=== PATIENT | male | born 1955 | race Caucasian/White ===

== ENCOUNTER 2017-05-27 14:31 | Observation (INO) | payer MEDICAID ==
[~2017-05-27] VITALS: Ht 175.3 cm; Wt 71.0 kg
[2017-05-27 15:09] LABS: BASOPHILS # (AUTO) 0.04 x10^3/uL (0-0.1); BASOPHILS % (AUTO) 1 % (0-1); EOSINOPHILS # (AUTO) 0.08 x10^3/uL (0-0.4); EOSINOPHILS % (AUTO) 1 % (1-7); LYMPHOCYTES # (AUTO) 1.26 x10^3/uL (1-3.4); LYMPHOCYTES % (AUTO) 21 % (22-44); MD NO; MEAN CORPUSCULAR HGB CONC 33.4 g/dL (33.2-36.2); MEAN CORPUSCULAR VOLUME 90.1 fL (81-97); MEAN PLATELET VOLUME 8.6 fL (7.4-10.4); MONOCYTES # (AUTO) 0.36 x10^3/uL (0.2-0.8); MONOCYTES % (AUTO) 6 % (2-9); NEUTROPHILS # (AUTO) 4.16 x10^3/uL (1.8-6.8); NEUTROPHILS % (AUTO) 71 % (42-75); PLATELET COUNT 166 x10^3/uL (130-400); RED BLOOD COUNT 5.24 x10^6/uL (4.38-5.82); RED CELL DISTRIBUTION WIDTH 12.4 % (9.4-14.8)
[2017-05-27 15:17] LABS: ALANINE AMINOTRANSFERASE 32 U/L (12-78); ALBUMIN 3.7 g/dL (3.4-5.0); ANION GAP 7 mmol/L (5-15); CALCIUM 8.2 mg/dL (8.5-10.1); CHLORIDE 105 mmol/L (98-107); CREATININE 0.76 mg/dL (0.7-1.3)
[2017-05-27 15:20] LABS: ALKALINE PHOSPHATASE 59 U/L (45-117); BILIRUBIN,TOTAL 0.6 mg/dL (0.2-1.0); TOTAL PROTEIN 6.9 g/dL (6.4-8.2)
[2017-05-27 15:21] LABS: ACETAMINOPHEN < 2 mcg/mL (10-30); SALICYLATE LEVEL < 1.7 mg/dL (2.8-20.0)
[2017-05-27 15:53] LABS: MICROSCOPIC NOT IND
[2017-05-27 15:57] LABS: CULTURE INDICATED? NO
[2017-05-27 16:13] LABS: AMPHETAMINE SCREEN, URINE Negative (Negative); BARBITURATE SCREEN, URINE Negative (Negative); BENZODIAZEPINE SCREEN, URINE Negative (Negative); CANNABINOID SCREEN, URINE Positive (Negative); COCAINE SCREEN, URINE Negative (Negative); METHADONE SCREEN, URINE Negative (Negative); OPIATE SCREEN, URINE Negative (Negative)
[2017-05-27] MEDS ORDERED: ONDANSETRON ODT 4 MG PO PRN (17:30)
[2017-05-27] MEDS ORDERED: HYDROcodone/APAP 5/325 TABLET PO PRN (17:30)
[2017-05-27 17:45] LABS: INTERNATIONAL NORMALIZED RATIO 1.08 (0.93-1.1); PROTHROMBIN TIME 11.1 Seconds (9.6-11.5)
[2017-05-27 18:17] LABS: FREE T4 (FREE THYROXINE) 1.21 ng/dL (0.76-1.46); THYROID STIMULATING HORMONE 0.393 mIU/L (0.358-3.740)
[2017-05-27 19:35] VITALS: BP 113/76
[2017-05-27] MEDS: LORazepam 1MG TABLET PO PRN (20:10)
[2017-05-27] MEDS: CYCLOBENZAPRINE 10 MG TABLET PO PRN (20:10)
[2017-05-28 05:39] LABS: BASOPHILS # (AUTO) 0.03 x10^3/uL (0-0.1); BASOPHILS % (AUTO) 1 % (0-1); EOSINOPHILS # (AUTO) 0.25 x10^3/uL (0-0.4); EOSINOPHILS % (AUTO) 5 % (1-7); LYMPHOCYTES # (AUTO) 1.63 x10^3/uL (1-3.4); LYMPHOCYTES % (AUTO) 33 % (22-44); MD NO; MEAN CORPUSCULAR HEMOGLOBIN 30.6 pg (27.5-34.5); MEAN CORPUSCULAR HGB CONC 33.7 g/dL (33.2-36.2); MEAN CORPUSCULAR VOLUME 90.7 fL (81-97); MEAN PLATELET VOLUME 9.1 fL (7.4-10.4); MONOCYTES # (AUTO) 0.44 x10^3/uL (0.2-0.8); MONOCYTES % (AUTO) 9 % (2-9); NEUTROPHILS # (AUTO) 2.64 x10^3/uL (1.8-6.8); NEUTROPHILS % (AUTO) 53 % (42-75); PLATELET COUNT 164 x10^3/uL (130-400); RED BLOOD COUNT 5.27 x10^6/uL (4.38-5.82); RED CELL DISTRIBUTION WIDTH 13.2 % (9.4-14.8)
[2017-05-28 05:49] LABS: CHLORIDE 109 mmol/L (98-107)
[2017-05-28 06:02] LABS: ALANINE AMINOTRANSFERASE 29 U/L (12-78); ALBUMIN 3.5 g/dL (3.4-5.0); ALKALINE PHOSPHATASE 53 U/L (45-117); ANION GAP 7 mmol/L (5-15); BILIRUBIN,TOTAL 0.6 mg/dL (0.2-1.0); CALCIUM 8.8 mg/dL (8.5-10.1); TOTAL PROTEIN 6.5 g/dL (6.4-8.2)
[2017-05-28] MEDS: CYCLOBENZAPRINE 10 MG TABLET PO PRN ×2 (07:49→20:40)
[2017-05-28 07:54] VITALS: BP 120/77
[2017-05-28 19:34] VITALS: BP 119/82
[2017-05-28] MEDS: LORazepam 1MG TABLET PO PRN (20:39)
[2017-05-28] MEDS: LITHIUM CARBONATE 300 MG CAPSULE PO SCH (20:39)
[2017-05-29 07:23] VITALS: BP 118/78
[2017-05-29] MEDS: LITHIUM CARBONATE 300 MG CAPSULE PO SCH ×2 (09:10→20:55)
[2017-05-29] MEDS: ARIPIPRAZOLE 10 MG TABLET PO SCH (09:11)
[2017-05-29 19:48] VITALS: BP 123/80
[2017-05-29] MEDS: TRAZODONE 50MG TABLET PO PRN (21:04)
[2017-05-29] MEDS: LORazepam 1MG TABLET PO PRN (23:55)
[2017-05-30 08:25] VITALS: BP 141/84
[2017-05-30] MEDS: LORazepam 1MG TABLET PO PRN (09:11)
[2017-05-30] MEDS: ARIPIPRAZOLE 10 MG TABLET PO SCH (09:11)
[2017-05-30] MEDS: LITHIUM CARBONATE 300 MG CAPSULE PO SCH ×2 (09:11→20:44)
[2017-05-30 11:56] LABS: BASOPHILS # (AUTO) 0.03 x10^3/uL (0-0.1); BASOPHILS % (AUTO) 0 % (0-1); EOSINOPHILS # (AUTO) 0.19 x10^3/uL (0-0.4); EOSINOPHILS % (AUTO) 3 % (1-7); LYMPHOCYTES # (AUTO) 1.55 x10^3/uL (1-3.4); LYMPHOCYTES % (AUTO) 22 % (22-44); MD NO; MEAN CORPUSCULAR HGB CONC 33.4 g/dL (33.2-36.2); MEAN CORPUSCULAR VOLUME 89.8 fL (81-97); MEAN PLATELET VOLUME 8.9 fL (7.4-10.4); MONOCYTES # (AUTO) 0.43 x10^3/uL (0.2-0.8); MONOCYTES % (AUTO) 6 % (2-9); NEUTROPHILS # (AUTO) 4.97 x10^3/uL (1.8-6.8); NEUTROPHILS % (AUTO) 69 % (42-75); PLATELET COUNT 181 x10^3/uL (130-400); RED BLOOD COUNT 5.34 x10^6/uL (4.38-5.82); RED CELL DISTRIBUTION WIDTH 12.8 % (9.4-14.8)
[2017-05-30 12:05] LABS: ALANINE AMINOTRANSFERASE 27 U/L (12-78); ALBUMIN 3.7 g/dL (3.4-5.0); ANION GAP 5 mmol/L (5-15); CALCIUM 8.9 mg/dL (8.5-10.1); CHLORIDE 106 mmol/L (98-107); CREATININE 0.61 mg/dL (0.7-1.3)
[2017-05-30 12:07] LABS: ALKALINE PHOSPHATASE 59 U/L (45-117); BILIRUBIN,TOTAL 0.5 mg/dL (0.2-1.0); TOTAL PROTEIN 6.8 g/dL (6.4-8.2)
[2017-05-30 20:20] VITALS: BP 137/75
[2017-05-30] MEDS: CYCLOBENZAPRINE 10 MG TABLET PO PRN (20:50)
[2017-05-31 07:57] VITALS: BP 125/80
[2017-05-31] MEDS: ARIPIPRAZOLE 10 MG TABLET PO SCH (08:53)
[2017-05-31] MEDS: LITHIUM CARBONATE 300 MG CAPSULE PO SCH ×2 (08:55→20:16)
[2017-05-31] MEDS: LORazepam 1MG TABLET PO PRN ×2 (15:12→20:16)
[2017-05-31 19:29] VITALS: BP 134/89
[2017-06-01 07:15] VITALS: BP 122/88
[2017-06-01] MEDS: LITHIUM CARBONATE 300 MG CAPSULE PO SCH ×2 (08:38→20:37)
[2017-06-01] MEDS: ARIPIPRAZOLE 10 MG TABLET PO SCH (08:38)
[2017-06-01] MEDS: HYDROcodone/APAP 5/325 TABLET PO PRN ×2 (08:52→20:37)
[2017-06-01] MEDS: CYCLOBENZAPRINE 10 MG TABLET PO PRN ×2 (08:53→20:37)
[2017-06-01 19:40] VITALS: BP 136/86
[2017-06-01] MEDS: TRAZODONE 50MG TABLET PO PRN (21:45)
[2017-06-02] MEDS: LORazepam 1MG TABLET PO PRN ×2 (02:57→16:54)
[2017-06-02 07:45] VITALS: BP 113/79
[2017-06-02] MEDS: HYDROcodone/APAP 5/325 TABLET PO PRN ×3 (08:57→21:09)
[2017-06-02] MEDS: LITHIUM CARBONATE 300 MG CAPSULE PO SCH ×2 (08:58→21:09)
[2017-06-02] MEDS: ARIPIPRAZOLE 10 MG TABLET PO SCH (08:58)
[2017-06-02 20:23] VITALS: BP 133/76
[2017-06-02] MEDS: CYCLOBENZAPRINE 10 MG TABLET PO PRN (21:09)
[2017-06-03 07:09] VITALS: BP 114/77
[2017-06-03] MEDS: HYDROcodone/APAP 5/325 TABLET PO PRN (08:03)
[2017-06-03] MEDS: CYCLOBENZAPRINE 10 MG TABLET PO PRN (08:03)
[2017-06-03] MEDS: ARIPIPRAZOLE 10 MG TABLET PO SCH (09:00)
[2017-06-03] MEDS: LITHIUM CARBONATE 300 MG CAPSULE PO SCH (09:22)
[2017-06-03] MEDS ORDERED: LITH300C PO (11:02)
[2017-06-03] MEDS ORDERED: ARIP10TA33 PO (11:02)
== END 2017-06-03 14:32 ==
LOC: ED 15:47 → EDIP 17:07 → 3E 18:26
PROVIDERS: ADMIT Internal Medicine; ATTEND Internal Medicine
DX: R44.0 Auditory hallucinations (principal); F23 Brief psychotic disorder; R44.1 Visual hallucinations; F31.9 Bipolar disorder, unspecified; F41.9 Anxiety disorder, unspecified; F12.90 Cannabis use, unspecified, uncomplicated; Z83.3 Family history of diabetes mellitus; Z87.891 Personal history of nicotine dependence
CPT/HCPCS: 36415; 80053; 80307; 80329; 81003; 84439; 84443; 85025; 85610; 93005; 99285; G0378; G0480